=== PATIENT | female | born 1950 | race Caucasian/White ===

== ENCOUNTER → 2019-07-20 12:42 | Outpatient (CLI) | payer OTHER, SELFPAY ==
--- NOTE | ~2019-07-20 | XR_ITS ---
EXAMINATION:XR_CERV2-3V_CR DATE: 07/20/2019 13:02 INDICATION: Neck pain TECHNIQUE: AP, lateral, lateral swimmers and odontoid views of the cervical spine are provided. COMPARISON: 08/07/2018 FINDINGS: Alignment is normal. The odontoid is intact. No fracture is identified. There are changes o f anterior fusion at C4-5. The vertebral body heights are normal. There is mild loss of intervertebra l disc space height throughout the cervical spine which is unchanged. Mild multilevel facet osteoarth ritis is seen and moderate to severe uncovertebral joint osteoarthritis. There is moderate atlantoaxi al osteoarthritis as well. Prevertebral soft tissues are normal. IMPRESSION: 1. Mild to moderate cervical spondylosis without acute findings or significant interval change. Reviewed, dictated and finalized at location A. [employer]IST
== END ==
PROVIDERS: PCP Emergency Medicine; Visit Provider Emergency Medicine
DX: M47.892 Other spondylosis, cervical region (principal)
CPT/HCPCS: 72040

== ENCOUNTER 2019-07-27 12:27 | Outpatient (CLI) | payer OTHER, SELFPAY ==
--- NOTE | 2019-07-27 12:45 | ECHO_ITS ---
Patient Info Name: Chantal Clayton Age: 69 years : 1950 Gender: Female Ht: 66 in Wt: 160 lbs BSA: 1.85 m2 HR: 67 bpm BP: 166 / 94 mmHg Heart Rhythm: Sinus Rhythm Technical Quality: Excellent Exam Date: 07/27/2019 1:04 PM Exam Location: [facility] Patient Status: Outpatient Admit Date: 07/27/2019 Staff Ordering Physician: Nadir Gautam MD [employer] Psychologist: Juan José Olmstead RDCS Attending Provider: Nadir Gautam MD Referring Physician: Lotus SARABIA; Exam Type: CA echo doppler color flow Study Info Indications R01.1 - Cardiac murmur, unspecified Complete two-dimensional, color flow and Doppler transthoracic echocardiogram is performed. Strain analysis performed. History/Risk Factors Cardiac murmur. Summary 1. Left ventricular chamber dimension is normal. 2. Left ventricular systolic function is normal, estimated at 60-65%. 3. The left ventricular diastolic function is grade I diastolic dysfunction. 4. E/e' 5 is not elevated. 5. Global longitudinal strain is normal at -20.2%. 6. There is moderate aortic valve sclerosis. 7. There is mild aortic valve stenosis with a peak velocity of 182 cm/s, mean gradient of 7 mmHg, and aortic valve area of 2.0 cm2. 8. There is mild aortic valve regurgitation. 9. There is mild tricuspid valve regurgitation. 10. No pulmonary hypertension, estimated pulmonary arterial systolic pressure is 25 mmHg. Left Ventricle E/e' 5 is not elevated. Global longitudinal strain is normal at -20.2%. Left ventricular chamber dimension is normal. Left ventricular systolic function is normal, estimated at 60-65%. The left ventricular diastolic function is grade I diastolic dysfunction. Right Ventricle Right ventricular chamber dimension is normal. Right ventricular systolic function is normal. Left Atria Left atrial chamber dimension is normal. Right Atria Right atrial chamber dimension is normal. Aortic Valve The aortic valve is trileaflet. There is moderate aortic valve sclerosis. There is mild aortic valve stenosis with a peak velocity of 182 cm/s, mean gradient of 7 mmHg, and aortic valve area of 2.0 cm2. There is mild aortic valve regurgitation. Pulmonic Valve There is no pulmonic regurgitation. Mitral Valve There is no mitral valve stenosis. There is no mitral valve regurgitation. Tricuspid Valve There is mild tricuspid valve regurgitation. No pulmonary hypertension, estimated pulmonary arterial systolic pressure is 25 mmHg. Pericardium/Pleural There is no pericardial effusion. Inferior Vena Cava Normal inferior vena cava with >50% collapse upon inspiration consistent with normal right atrial pressure, 5 mmHg. Aorta The aortic root size at the sinus of Valsalva is normal. Left Ventricular Outflow Tract Name Value Normal LVOT 2D LVOT Diameter 2.1 cm LVOT Doppler LVOT Peak Gradient 4 mmHg LVOT Mean Gradient 3 mmHg LVOT VTI 26 cm LVOT VTI/AV VTI Ratio 0.6 LVOT Stroke Volume
== END 2019-07-27 12:28 | disposition home or self-care (01) ==
PROVIDERS: PCP Emergency Medicine; Visit Provider Emergency Medicine
DX: I08.3 Combined rheumatic disorders of mitral, aortic and tricuspid valves (principal)
CPT/HCPCS: 93306

== ENCOUNTER → 2019-08-26 16:48 | Outpatient (CLI) | payer OTHER, SELFPAY ==
--- NOTE | ~2019-08-26 | MR_ITS ---
EXAMINATION: MR cervical spine wo [facility] EXAM DATE: 08/26/2019 18:37 INDICATION: Neck pain radiating to shoulder and down right arm. TECHNIQUE: Multi-sequential, multiplanar MR images of the cervical spine were obtained without contra st. Axial T2, axial T2 MERGE sequence. Sagittal T1, T2, T2 fat saturation images also obtained. Th ere is no prior study for comparison. FINDINGS: There is anterior and interbody fusion C4-5. There is 2 mm retrolisthesis C3 on C4 and C5 on C6. There is mild to moderate cervical disc disease. The spinal cord signal intensity and intrinsi c morphology is normal. Cervicomedullary junction is normal in appearance. There are no suspicious ma rrow signal abnormalities. Mild cervical dextroscoliosis. Paraspinal soft tissue is unremarkable. Level by level evaluation: C2-C3: There is a mild diffuse disc bulge. Uncovertebral joint arthropathy: Mild left. Facet joint arthropathy: Moderate left, mild right. Neural foraminal stenosis: Mild to moderate left. Central canal stenosis: No stenosis. C3-C4: There is a mild diffuse disc bulge. Uncovertebral joint arthropathy: Mild bilateral. Facet joint arthropathy: Mild to moderate bilateral. Neural foraminal stenosis: Mild bilateral. Central canal stenosis: No stenosis. C4-C5: This level is fused. Uncovertebral joint arthropathy: Mild to moderate. Facet joint arthropathy: Mild bilateral. Neural foraminal stenosis: No stenosis. Central canal stenosis: No stenosis. C5-C6: There is a mild diffuse disc bulge. Uncovertebral joint arthropathy: Mild to moderate right, mild left. Facet joint arthropathy: Mild to moderate. Neural foraminal stenosis: Mild to moderate right, mild left. Central canal stenosis: No stenosis. C6-C7: Disc does not extend beyond the endplate margin. Uncovertebral joint arthropathy: Mild left. Facet joint arthropathy: Mild to moderate bilateral. Neural foraminal stenosis: Mild left. Central canal stenosis: No stenosis. C7-T1: Disc does not extend beyond the endplate margin. Uncovertebral joint arthropathy: Mild to moderate left, mild right. Facet joint arthropathy: Mild to moderate left, mild right. Neural foraminal stenosis: No stenosis. Central canal stenosis: No stenosis. IMPRESSION: 1. Overall mild to moderate cervical spondylosis. 2. Fusion C4-5. Reviewed, dictated and finalized at location A.
== END ==
PROVIDERS: Visit Provider Nurse Practitioner Adult Health
DX: M43.02 Spondylolysis, cervical region (principal); M47.892 Other spondylosis, cervical region; Z98.1 Arthrodesis status
CPT/HCPCS: 72141

== ENCOUNTER → 2019-12-17 09:15 | Outpatient (CLI) | payer OTHER, SELFPAY ==
--- NOTE | ~2019-12-17 | XR_ITS ---
XR foot RT 2V DATE: 12/17/2019 09:44 INDICATION: Multiple joint pain TECHNIQUE: AP and lateral views COMPARISON: None FINDINGS: Prominent plantar calcaneal enthesopathy. Mild osteoarthritis at the first metatarsophalangeal joint. No fracture, dislocation, periosteal reaction or bone destruction. IMPRESSION: Prominent plantar calcaneal enthesopathy Mild osteoarthritis at the first metatarsophalangeal joint Reviewed, dictated and finalized at location B.
--- NOTE | ~2019-12-17 | XR_ITS ---
XR foot LT 2V DATE: 12/17/2019 09:44 INDICATION: Multiple joint pain TECHNIQUE: AP and lateral views COMPARISON: 09/02/2014 left foot FINDINGS: There is prominent plantar calcaneal enthesopathy. No fracture or dislocation, periosteal reaction or bone destruction. Moderate osteopenia. IMPRESSION: Prominent plantar calcaneal enthesopathy Reviewed, dictated and finalized at location B.
--- NOTE | ~2019-12-17 | XR_ITS ---
EXAMINATION: XR shoulder RT min 2V, XR shoulder LT min 2V DATE: 12/17/2019 09:44 INDICATION: Multiple joint pain. TECHNIQUE: 1. AP internally and externally rotated and axillary views of the affected shoulder were obtained. 2. AP internally and externally rotated and axillary views of the affected shoulder were obtained. COMPARISON: Right shoulder radiographs dated 05/11/2018 and MRI dated 04/01/2018. FINDINGS: Normal alignment at both shoulders. No fracture. Mild osteoarthritis at the right glenohumeral and b ilateral acromioclavicular joints. Suggestion of mild erosive change along the bilateral greater tube rosities which can be seen with chronic rotator cuff disease. Soft tissues are unremarkable. C4-C5 an terior spinal fusion with plate and screw fixation. Visualized portions of the bilateral mid and uppe r lung zones lungs are clear. IMPRESSION: 1. Mild right glenohumeral and bilateral acromioclavicular osteoarthritis. 2. Erosive changes along the bilateral greater tuberosities which can be seen with rotator cuff disea se. Reviewed, dictated and finalized at location A. IMPRESSION: 1. Mild right glenohumeral and bilateral acromioclavicular osteoarthritis. 2. Erosive changes along the bilateral greater tuberosities which can be seen w ith rotator cuff disease.
--- NOTE | ~2019-12-17 | XR_ITS ---
EXAMINATION: XR hand LT 2V, XR hand RT 2V, XR wrist LT 2V, XR wrist RT 2V DATE: 12/17/2019 09:44 INDICATION: Multiple joint pain TECHNIQUE: 1. Posteroanterior and lateral views of the left wrist were obtained. 2. Dorsal palmar and lateral views of the left hand were obtained. 3. Posteroanterior and lateral views of the right wrist were obtained. 4. Dorsal palmar and lateral views of the right hand were obtained. COMPARISON: None. FINDINGS: There is mild radial angulation at the bilateral second distal interphalangeal joints likely related to severe erosive osteoarthritis with central erosions gullwing configuration at the base of the bila teral second distal phalanges. Additional similar appearing erosion at the base of the left fifth dis philip phalanx. Otherwise normal alignment at the bilateral hands and wrists. No fractures. Additional p olyarticular osteoarthritis, moderate severity at the lateral triscaphe, right first carpometacarpal left first interphalangeal and fourth and fifth distal interphalangeal and right third and fourth dis philip interphalangeal joints and mild at the left first carpal metacarpal, bilateral radiocarpal and ma jority the remaining metacarpophalangeal and interphalangeal joints. Likely degenerative subchondral cyst within sclerotic margins at the ulnar side of the proximal pole of the scaphoid. No periarticula r erosions to suggest an inflammatory arthritis such as rheumatoid. IMPRESSION: 1. 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 Reviewed, dictated and finalized at location A. IMPRESSION: 1. Moderate to severe polyarticular osteoarthritis at the bilateral hands and w rists includes erosive osteoarthritis at a few of the distal interphalangeal alecia ints. IMPRESSION: 1. Moderate to severe polyarticular osteoarthritis at the bilateral hands and w rists includes erosive osteoarthritis at a few of the distal interphalangeal alecia ints. IMPRESSION: 1. Moderate to severe polyarticular osteoarthritis at the bilateral hands and w rists includes erosive osteoarthritis at a few of the distal interphalangeal alecia ints.
== END ==
PROVIDERS: PCP Emergency Medicine; Visit Provider Internal Medicine Rheumatology
DX: M25.50 Pain in unspecified joint (principal); M77.32 Calcaneal spur, left foot; M77.31 Calcaneal spur, right foot; M19.071 Primary osteoarthritis, right ankle and foot; M19.012 Primary osteoarthritis, left shoulder; M19.011 Primary osteoarthritis, right shoulder; M19.041 Primary osteoarthritis, right hand; M19.042 Primary osteoarthritis, left hand; M19.031 Primary osteoarthritis, right wrist; M19.032 Primary osteoarthritis, left wrist
CPT/HCPCS: 73030; 73100; 73120; 73620

== ENCOUNTER 2020-08-16 15:56 | Outpatient (CLI) | payer OTHER, MEDICARE, SELFPAY | END 2020-08-16 15:57 | disposition home or self-care (01) | LOC: ANHCOVIDVC 15:56 | PROVIDERS: PCP Emergency Medicine | DX: Z23 Encounter for immunization (principal) | CPT/HCPCS: 0001A; 91300 ==

== ENCOUNTER 2020-09-06 15:52 | Outpatient (CLI) | payer OTHER, MEDICARE, SELFPAY | END 2020-09-06 15:53 | disposition home or self-care (01) | LOC: ANHCOVIDVC 15:52 | PROVIDERS: PCP Emergency Medicine | DX: Z23 Encounter for immunization (principal) | CPT/HCPCS: 0002A; 91300 ==

== ENCOUNTER → 2020-09-15 00:49 | Outpatient (CLI) | payer OTHER, SELFPAY ==
[2020-09-15 19:49] LABS: SARS-CoV-2 RNA PCR Negative
== END ==
PROVIDERS: PCP Emergency Medicine; Visit Provider Internal Medicine Gastroenterology
DX: Z01.812 Encounter for preprocedural laboratory examination (principal); Z20.822 Contact with and (suspected) exposure to COVID-19
CPT/HCPCS: C9803; U0003; U0005

== ENCOUNTER 2020-09-18 01:21 | Day surgery (SDC) | payer OTHER, SELFPAY ==
[2020-09-04 13:21] VITALS: BMI 24.9
[2020-09-18 13:01] VITALS: BP 113/74; PULSE 83; RESP 16; TEMP 37.2; O2SAT 98; BMI 23.3
--- NOTE | 2020-09-18 13:06 | WPDANESEPPF ---
Anes - Initial Pre Proc Eval Procedure: Operation Date: 09/18/20 14:15 Proposed Procedures p Esophagogastroduodenoscopy & Colonoscopy - He Dumont MD Date/Time: 09/18/20 13:06 Surgeon: He Dumont MD Pre Op Diagnosis: GERD, diarrhea Patient Data Age: 70 Gender: F Height: 5 ft 6 in Weight: 65.6 kg Last Vital Signs Temp 99 F 09/18/20 13:01 Pulse 83 09/18/20 13:01 Resp 16 09/18/20 13:01 BP 113/74 09/18/20 13:01 Pulse Ox 98 09/18/20 13:01 Allergies Allergy/AdvReac Type Severity Reaction Status Date / Time acetaminophen Allergy Intermediate Other Verified 09/18/20 13:00 oxycodone Allergy Intermediate Other Verified 09/18/20 13:00 Home Medications Medication Instructions Recorded Confirmed Type cholecalciferol (vitamin D3) 50 50 mcg PO DAILY cap 02/08/20 09/04/20 History mcg (2,000 unit) capsule cyanocobalamin (vitamin B-12) 1,000 mcg PO DAILY 02/08/20 09/04/20 History 1,000 mcg tablet alendronate 70 mg tablet See Rx Instructions .ROUTE 08/28/20 09/04/20 Rx .COMPLEX #12 tablet Patient hx anesthesia problems: none Family hx anesthesia problems: none PMFSH Past Medical History Medical History GERD (gastroesophageal reflux disease) Vitamin D deficiency disease Family History Family History Sibling Family history of cardiovascular disease Other Diabetes mellitus Family history of arthritis Social History Social History Smoking status: Never smoker Alcohol intake: current Alcohol use details: 1drink every 2 months Living arrangements: with family Gender identity (if verbalized by the patient): Male Spiritual care concerns: No Anes - Eval Final PreProcedure Day of Procedure 09/18/20 13:06 Patient weight: normal Heart: regular rate and rhythm Lungs: clear to auscultation Airway: Mallampati scale class II Neurological: alert and oriented Last oral intake: >/= 8 hours ASA classification: II Emergent: no Anesthetic plan: proceed Anesthesia type and monitoring: general GIVS and standard monitoring Informed Consent: The patient's anesthetic plan and its attendant risks and benefits were discussed with the patient/family/POA. Questions were solicited and answers provided to the satisfaction of the patient/family/POA.
[2020-09-18] MEDS: LACTATED RINGERS 1,000 ML 150 ML IV CONT (13:14)
--- NOTE | 2020-09-18 14:18 | PM.HPGS ---
History of Present Illness History of Present Illness Consent: Risks, benefits, and alternatives have been discussed and questions answered. Patient agrees to proceed with procedure. Chief complaint: GERD, diarrhea Narrative: Chantal Clayton is a 70 year old female with symptomatic gerd, currently not using ppi, also intermittent diarrhea (last colonoscopy 2012) Review of Systems Constitutional: Constitutional: Denies headache(s) and Denies weakness Eyes: Eyes: Denies blurry vision ENT: Reports Normal hearing present, Denies headache(s) and Denies neck pain Cardiovascular: Cardiovascular: Denies chest pain and Denies dyspnea Respiratory: Respiratory: Denies dyspnea Gastrointestinal: Gastrointestinal: Reports no additional gastrointestinal complaints Genitourinary: Genitourinary: Denies dysuria Musculoskeletal: Musculoskeletal: Denies neck pain Integumentary/Breasts: Skin/Breast: Denies dry skin Neurologic: Reports Normal hearing present, Denies headache(s) and Denies weakness Psychiatric: Psychiatric: Denies anxiety Endocrine: Endocrine: Denies change in body appearance Hematologic/Lymphatic: Hematologic/Lymphatic: Denies easy bleeding Allergic/Immunologic: Allergic/Immunologic: Denies urticaria PMFSH Past Medical History Medical History GERD (gastroesophageal reflux disease) Vitamin D deficiency disease Family History Family History Sibling Family history of cardiovascular disease Other Diabetes mellitus Family history of arthritis Social History Social History Smoking status: Never smoker Alcohol intake: current Alcohol use details: 1drink every 2 months Living arrangements: with family Gender identity (if verbalized by the patient): Male Spiritual care concerns: No Meds Home Medications and Allergies Home Medications Medication Instructions Recorded Confirmed Type cholecalciferol (vitamin D3) 50 50 mcg PO DAILY cap 02/08/20 09/04/20 History mcg (2,000 unit) capsule cyanocobalamin (vitamin B-12) 1,000 mcg PO DAILY 02/08/20 09/04/20 History 1,000 mcg tablet alendronate 70 mg tablet See Rx Instructions .ROUTE 08/28/20 09/04/20 Rx .COMPLEX #12 tablet Allergies Allergy/AdvReac Type Severity Reaction Status Date / Time acetaminophen Allergy Intermediate Other Verified 09/18/20 13:00 oxycodone Allergy Intermediate Other Verified 09/18/20 13:00 Vital Signs Vital Signs - 24 hr 09/18/20 13:01 Temperature 99 F Pulse Rate 83 Respiratory Rate 16 Blood Pressure 113/74 Pulse Oximetry 98 Exam Const: General: comfortable and no acute distress HENMT: General nose exam: Normal nares present Eyes: General: appearance normal, both eyes and all related structures Neck: Neck: no JVD Resp: Auscultation: clear to auscultation bilaterally Cardio: Rate: regular rate Rhythm: regular rhythm GI: Inspection: non-distended GI Palp: Yes Soft to palpation Skin: General skin exam: normal color Neuro: General: gait normal Speech: normal speech Extrem: General: normal to inspection Psych: Mental Status: mental status grossly normal Assessment and Plan Assessment and plan (1) GERD (gastroesophageal reflux disease): Qualifiers: Esophagitis presence: without esophagitis Qualified Code(s): K21.9 - Gastro-esophageal reflux disease without esophagitis Code(s): K21.9 - Gastro-esophageal reflux disease without esophagitis Status: Acute Assessment and Plan: egd with bx, consider ppi (2) Diarrhea: Qualifiers: Diarrhea type: unspecified type Qualified Code(s): R19.7 - Diarrhea, unspecified Code(s): R19.7 - Diarrhea, unspecified Status: Acute Assessment and Plan: colonoscopy with random bx
[2020-09-18] MEDS: BENZOCAINE (*SP) 60 ML SPRAY CAN (HURRICAINE) 1 SPRAY MUCOUS MEM (14:20)
[2020-09-18 14:56] VITALS: BP 89/55; PULSE 69; RESP 13; O2SAT 96
[2020-09-18 15:06] VITALS: BP 94/58; PULSE 80; RESP 20; O2SAT 97
[2020-09-18 15:16] VITALS: BP 101/57; PULSE 70; RESP 22; O2SAT 99
--- NOTE | 2020-09-18 15:31 | SUR.PHASEII ---
1516 pt up to bathroom
== END 2020-09-18 15:39 | disposition home or self-care (01) ==
PROVIDERS: PCP Emergency Medicine; Visit Provider Internal Medicine Gastroenterology
PROC: 0DJ08ZZ Inspection of Upper Intestinal Tract, Via Natural or Artificial Opening Endoscopic (ICD-10-PCS; CPT 43235; principal; 2020-09-18 14:15)
DX: R19.7 Diarrhea, unspecified (principal); D12.2 Benign neoplasm of ascending colon; K63.5 Polyp of colon; K21.00 Gastro-esophageal reflux disease with esophagitis, without bleeding; E55.9 Vitamin D deficiency, unspecified
CPT/HCPCS: 45385; 45380; 43239; 88305; C9803; J2704; J7120; U0003; U0005

== ENCOUNTER → 2020-10-26 14:37 | Outpatient (CLI) | payer OTHER, SELFPAY ==
--- NOTE | ~2020-10-26 | MM_ITS ---
EXAMINATION: MM screening [facility] BI w anh HISTORY: Screening TECHNIQUE: Craniocaudal and mediolateral oblique 3-D tomosynthesis images were obtained and synthetic 2-D images were generated. CAD analysis was submitted and interpreted. COMPARISON: Comparison to multiple prior studies sequentially, with oldest reviewed study dated 03/10. BREAST PARENCHYMAL COMPOSITION: There are scattered areas of fibroglandular density. FINDINGS: There is no evidence of suspicious mass, calcification, or architectural distortion to sugg est malignancy in either breast. There has been no suspicious interval change. IMPRESSION: 1. No mammographic evidence of malignancy. 2. Recommend routine screening mammography in one year. BI-RADS Category 1: Negative Reviewed, dictated and finalized at location A.
== END ==
PROVIDERS: PCP Emergency Medicine; Visit Provider Emergency Medicine
DX: Z12.31 Encounter for screening mammogram for malignant neoplasm of breast (principal)
CPT/HCPCS: 77063; 77067

== ENCOUNTER → 2022-04-02 14:20 | Outpatient (CLI) | payer OTHER, SELFPAY ==
--- NOTE | ~2022-04-02 | MM_ITS ---
EXAMINATION: MM screening [facility] BI w anh HISTORY: Screening mammogram TECHNIQUE: Craniocaudal and mediolateral oblique 3-D tomosynthesis images were obtained and synthetic 2-D images were generated. CAD analysis was submitted and interpreted. COMPARISON: 10/26/2020, 08/05/2018, 04/04/2017 BREAST PARENCHYMAL COMPOSITION: There are scattered areas of fibroglandular density. FINDINGS: Scattered benign-appearing calcifications are present. No suspicious mass, calcification, o r architectural distortion are identified in either breast to suggest malignancy. There has been no s uspicious interval change. IMPRESSION: 1. No mammographic evidence of malignancy. 2. Recommend routine screening mammography in one year. BI-RADS Category 2: Benign finding(s). Reviewed, dictated and finalized at location A.
== END ==
PROVIDERS: PCP Emergency Medicine; Visit Provider Emergency Medicine
DX: Z12.31 Encounter for screening mammogram for malignant neoplasm of breast (principal)
CPT/HCPCS: 77063; 77067

== ENCOUNTER 2023-12-09 09:27 | Outpatient (CLI) | payer OTHER, SELFPAY ==
--- NOTE | ~2023-12-09 | MM_ITS ---
EXAMINATION: MM screening [facility] BI w anh HISTORY: Screening mammogram TECHNIQUE: Craniocaudal and mediolateral oblique 3-D tomosynthesis images were obtained and synthetic 2-D images were generated. CAD analysis was submitted and interpreted. COMPARISON: 04/02/2022, 10/26/2020, 08/05/2018 BREAST PARENCHYMAL COMPOSITION:Not Dense. There are scattered areas of fibroglandular density. FINDINGS: No suspicious mass, calcification, or architectural distortion are identified in either edvin ast to suggest malignancy. There has been no suspicious interval change. IMPRESSION: No mammographic evidence of malignancy. Recommend routine screening mammography in one year. BI-RADS Category 1: Negative Reviewed, dictated and finalized at location .
== END 2023-12-09 09:28 ==
PROVIDERS: Visit Provider Emergency Medicine
DX: Z12.31 Encounter for screening mammogram for malignant neoplasm of breast (principal)
CPT/HCPCS: 77063; 77067

== ENCOUNTER 2024-02-04 11:39 | Outpatient (CLI) | payer OTHER, SELFPAY ==
--- NOTE | ~2024-02-04 | DEXA_ITS ---
Bone Density Report Name: HENRY MULLIGAN Age: 74 Sex: Female Ethnicity: White Date of : 1950 Indication: postmenopausal; screening for osteoporosis; prior fracture; asthma or emphysema; rheumatoid arthritis; Referring Provider: ANGELA SUN Study: Bone densitometry was performed. Exam Date: February 04, 2024 Accession number: [id number] Bone Density: Region BMD T-score Z-score Classification Femoral Neck (Left) 0.566 -2.6 -0.5 Osteoporosis Total Hip (Left) 0.677 -2.2 -0.4 Osteopenia Femoral Neck (Right) 0.591 -2.3 -0.3 Osteopenia Total Hip (Right) 0.674 -2.2 -0.5 Osteopenia Total Hip Mean 0.676 -2.2 -0.5 Osteopenia World Health Organization criteria for BMD impression classify patients as: Normal (T-score at or above -1.0), Osteopenia (T-score between -1.0 and -2.5), or Osteoporosis (T-score at or below -2.5). 10-year Fracture Risk: FRAX not reported because: Some T-score for Spine Total or Hip Total or Femoral Neck at or below -2.5 Prior hip or vertebral fracture Treated for osteoporosis Clinical Information Provided by Patient: Have had a previous hip or vertebral fracture Has had a low trauma fracture Has rheumatoid arthritis Is being treated for osteoporosis Has used the following medications: Fosamax (i.e. alendronate), Vitamin D Has the following medical conditions: Asthma or Emphysema Patient maximum height was 69.0 Does not regularly consume dairy products Drinks caffeinated beverages Onset of menses at age 11 Number of children 2 Impression: The patient has established osteoporosis, based on the Left Femoral Neck T-score and the existence of a prior fracture. The patient has risk factors, including: previous fracture. Discussion: It is important to ask patients whether they are taking their medications and to encourage continued and appropriate compliance with their osteoporosis therapies to reduce fracture risk. It is also important to review their risk factors and encourage appropriate calcium and vitamin D intakes, exercise, fall prevention and other lifestyle measures. Follow-Up: Consider a repeat BMD and Vertebral Fracture Assessment (VFA) exam in 2 years or sooner if medically necessary, to reassess this patient's status. Reported by: DIANE on 02/04/2024 12:35:00 PM. Reviewed, dictated and finalized at location Manny RIVERA
== END 2024-02-04 11:40 | disposition home or self-care (01) ==
PROVIDERS: PCP Emergency Medicine; Visit Provider Emergency Medicine
DX: M81.0 Age-related osteoporosis without current pathological fracture (principal); E55.9 Vitamin D deficiency, unspecified; M85.89 Other specified disorders of bone density and structure, multiple sites
CPT/HCPCS: 77080

== ENCOUNTER 2024-02-25 14:40 | Emergency (ER) | payer OTHER, SELFPAY ==
--- NOTE | ~2024-02-25 | CT_ITS ---
CT diagnostic chest wo con Ordering provider: Robbie Restrepo MD History: 74 years Female with . LEFT RIB PAIN/FALL . Comparison: None. Technique: CT chest without IV contrast. Radiation reduction technique utilized.The dose-length product was 167 mGy-cm FINDINGS: VISUALIZED THORACIC INLET: Normal. MEDIASTINUM: Aorta/coronary arteries: Mild atheromatous disease. Heart/other: The heart is not enlarged. Lymph nodes: No mediastinal or hilar adenopathy. LUNGS: Emphysematous changes of the lungs. Dependent atelectatic changes. No pulmonary nodules or mas ses. No infiltrates or effusions. No pneumothorax. VISUALIZED UPPER ABDOMEN: Otherwise, the visualized upper abdomen is normal. MUSCULOSKELETAL: Soft tissues: The superficial soft tissues are normal. Bones: Age appropriate degenerative changes of the spine. Possible Fracture is seen posteriorly in th e left 11, 9, and 8 ribs. Possible fracture in the right sixth and seventh rib. IMPRESSION: 1. Possible multiple rib fractures bilaterally. Follow-up advised. 2. Compression fracture of T12 and T11. 3. No acute lung lesion seen. Reviewed, dictated and finalized at location A.
--- NOTE | 2024-02-25 14:49 | ECG_ITS ---
Test Date: 2024-02-25 14:49:43 Measurements Intervals [place] Rate: 78 P: 62 CA: 153 QRS: -22 QRSD: 107 T: 34 QT: 392 QTc: 447 Interpretive Statements SINUS RHYTHM BASELINE ARTIFACT- I, II, AVR, AVL, AVF, V1 NORMAL ECG No previous ECG available for comparison Electronically Signed On 02-26-2024 08:17:19 CDT by Carlitos Herring D.O.
--- NOTE | 2024-02-25 15:02 | ED.GENADULT ---
HPI - General Adult General Chief complaint: Fall Stated complaint: FALL DOWN HILL 2 WEEKS AGO PAIN TO LEFT SIDE OF CH Time Seen by Provider: 02/25/24 14:55 Source: patient and family Mode of arrival: ambulatory Limitations: no limitations History of Present Illness HPI narrative: 74 years old white female came to the ED with pain at the left lower ribs, left shoulder after falling while walking her dog , rolled down a hill. Two weeks ago, She denies loss of consciousness, head injury, neck pain or back pain. Patient reports the pain at the left lower ribs is getting worse been taking Tylenol without remarkable improvement. History of advanced osteoporosis with kyphosis and back surgery. Related Data Home Medications Medication Instructions Recorded Confirmed cholecalciferol (vitamin D3) 50 50 mcg PO DAILY 02/08/20 11/18/23 mcg (2,000 unit) capsule aspirin 81 mg tablet,delayed 81 mg PO DAILY 07/14/23 11/18/23 release Allergies Allergy/AdvReac Type Severity Reaction Status Date / Time oxycodone Allergy Intermediate Gastrointestinal Verified 02/25/24 15:09 Upset Review of Systems Review of Systems: All systems reviewed & are unremarkable except as noted in HPI and below PMFSH Past Medical History Medical History Acute pain of right shoulder Age related osteoporosis Chest pain Chronic bilateral low back pain without sciatica Dental abscess Epigastric pain GERD (gastroesophageal reflux disease) GERD with esophagitis GERD without esophagitis Hx of adenomatous colonic polyps Hyperkalemia Incomplete tear of right rotator cuff Irritable bowel syndrome with diarrhea Mixed hyperlipidemia Osteoporosis Overweight (BMI 25.0-29.9) Post-menopause Primary osteoarthritis, unspecified site Skin lesion of face Vitamin D deficiency disease Family History Family History Sibling Family history of cardiovascular disease Other Diabetes mellitus Family history of arthritis Social History Social History Smoking status: Never smoker Alcohol intake: current Alcohol use details: 1drink every 2 months Current Housing: Decline to Answer Concerned About Future Housing: Decline to Answer Difficulty Paying Gas/Electric Bills: Decline to Answer Difficulty Paying for Meds: Decline to Answer Currently Unemployed: Decline to Answer Education: Decline to Answer Difficulty w/ Childcare or Family Care: Decline to Answer Living arrangements: with family Gender identity (if verbalized by the patient): Male Spiritual care concerns: No Exam Narrative: General appearance: Well-developed, well-nourished, in pain Skin: Normal color Head: Normocephalic, nontraumatic Eyes: Clear conjunctiva ENT: Oropharynx normal, ears normal, nose normal Neck: Supple, nontender Chest and respiratory: Airway patent, no respiratory distress, no accessory muscle use severe tenderness left lower ribs Heart: Regular rate/rhythm Abdomen: Soft, nontender, no organomegaly, quiet bowel sounds Vascular: Normal peripheral pulses, normal capillary refill. Musculoskeletal: Normal range of motion, nontender back, kyphosis, no bruises, no swelling or rash Neurologic: Alert and oriented ?3, FERRY OPERATOR is normal as tested, no gross motor deficit Course Vital Signs Vital signs: Vital Signs Temperature 36.6 C 02/25/24 15:03 Pulse Rate 73 02/25/24 15:03 Respiratory Rate 18 02/25/24 15:03 Blood Pressure 138/87 02/25/24 15:03 Pulse Oximetry 98 02/25/24 15:03 Oxygen Delivery Room Air
[2024-02-25 15:03] VITALS: BP 138/87; PULSE 73; RESP 18; TEMP 36.6; O2SAT 98
[2024-02-25] MEDS: ACETAMINOPHEN 325 MG TABLET 650 MG PO (16:03)
[2024-02-25] MEDS: IBUPROFEN 600 MG TABLET PO (16:04)
[2024-02-25 16:59] VITALS: BP 138/87; PULSE 77; RESP 20; O2SAT 99
== END 2024-02-25 17:05 | disposition home or self-care (01) ==
PROVIDERS: Emergency Provider Emergency Medicine; PCP Emergency Medicine
DX: S22.43XA Multiple fractures of ribs, bilateral, initial encounter for closed fracture (principal); S22.080A Wedge compression fracture of T11-T12 vertebra, initial encounter for closed fracture; E78.2 Mixed hyperlipidemia; E66.3 Overweight; Z68.28 Body mass index [BMI] 28.0-28.9, adult; E55.9 Vitamin D deficiency, unspecified; K21.00 Gastro-esophageal reflux disease with esophagitis, without bleeding; K58.0 Irritable bowel syndrome with diarrhea; M81.0 Age-related osteoporosis without current pathological fracture; M19.90 Unspecified osteoarthritis, unspecified site; Z86.010 Personal history of colon polyps; W10.2XXA Fall (on)(from) incline, initial encounter; Y93.K1 Activity, walking an animal
CPT/HCPCS: 71250; 93005; 99284; A9270

== ENCOUNTER 2024-03-03 11:56 | Outpatient (CLI) | payer OTHER, SELFPAY ==
--- NOTE | ~2024-03-03 | XR_ITS ---
Left Shoulder Technique: AP and scapular Y views were obtained. Clinical History: Pain Findings: No fracture or dislocation is seen. Osseous alignment is anatomic. The glenohumeral and acr omioclavicular joint spaces are preserved. Soft tissues are unremarkable. Impression: Unremarkable left shoulder radiographs. Reviewed, dictated and finalized at [facility]. Impression: Unremarkable left shoulder radiographs.
== END 2024-03-03 11:57 | disposition home or self-care (01) ==
PROVIDERS: PCP Emergency Medicine; Visit Provider Emergency Medicine
DX: M25.512 Pain in left shoulder (principal)
CPT/HCPCS: 73030

== ENCOUNTER 2024-04-20 12:25 | Outpatient (CLI) | payer OTHER, SELFPAY ==
--- NOTE | ~2024-04-20 | MR_ITS ---
EXAMINATION: MR cervical spine wo con DATE: 04/20/2024 13:50 INDICATION: Neck pain. TECHNIQUE: Magnetic resonance imaging (MRI) of the cervical spine was performed without intravenous c ontrast. COMPARISON: Cervical spine MRI 08/26/2019 FINDINGS: There is 11 degrees dextroscoliosis of cervical spine. Vertebral body heights are normal. T here are changes of anterior fusion procedure at C4-C5 with healed interbody bone graft and anterior plate and screws. There is 2 mm retrolisthesis of C5 on C6. There is a chronic compression fracture o f T3. There is mildly decreased disc height at C5-C6. The spinal cord signal intensity is normal. The following disc levels are specifically discussed: C2-C3: There is a central extrusion. There is mild right and moderate left uncovertebral joint osteoa rthritis. There is severe bilateral facet joint osteoarthritis. There is mild left neural foraminal s tenosis. There is mild central canal stenosis. C3-C4: There is a central protrusion. There is mild bilateral uncovertebral joint osteoarthritis. The re is mild right and moderate left facet joint osteoarthritis. There is mild left neural foraminal st enosis. There is no central canal stenosis. C4-C5: There is no uncovertebral joint hypertrophy. There is no facet joint hypertrophy. There is no neural foraminal stenosis. There is no central canal stenosis. C5-C6: The disc is bulging. There is moderate bilateral uncovertebral joint osteoarthritis. There is mild right and moderate left facet joint osteoarthritis. There is mild bilateral neural foraminal ulises nosis. There is mild central canal stenosis. C6-C7: The disc is bulging. There is mild left uncovertebral joint osteoarthritis. There is severe bi lateral facet joint osteoarthritis. There is mild bilateral neural foraminal stenosis. There is no ce ntral canal stenosis. C7-T1: The disc does not extend beyond the endplate margin. There is no uncovertebral joint osteoarth ritis. There is mild right and moderate left facet joint osteoarthritis. There is mild left neural fo raminal stenosis. There is no central canal stenosis. IMPRESSION: 1. Mild cervical spondylosis. 2. Anterior fusion procedure at C4-C5. 3. Cervical dextroscoliosis. Reviewed, dictated and finalized at location A. PLE CHASER
== END 2024-04-20 12:26 | disposition home or self-care (01) ==
LOC: MICIMG 12:27
PROVIDERS: PCP Emergency Medicine; Visit Provider Emergency Medicine
DX: M47.892 Other spondylosis, cervical region (principal); Z98.1 Arthrodesis status
CPT/HCPCS: 72141

== ENCOUNTER 2024-05-24 12:29 | Outpatient (CLI) | payer OTHER, SELFPAY ==
--- NOTE | ~2024-05-24 | MR_ITS ---
EXAMINATION: MR shoulder LT wo con DATE: 05/24/2024 13:09 INDICATION: Left shoulder pain. TECHNIQUE: Magnetic resonance imaging (MRI) of the left shoulder was performed without intravenous co ntrast. Sequences included axial PD-weighted FS FSE, coronal oblique PD-weighted FS FSE and T2-weight ed FS FSE, and sagittal oblique T2-weighted FS FSE and T1-weighted FSE. COMPARISON: Left shoulder radiographs 03/03/2024 FINDINGS: Coracoacromial arch: The acromion undersurface is curved in morphology with anterior hook (type III). There is severe acro mioclavicular joint osteoarthritis. There is mild subacromial/subdeltoid bursitis. Rotator cuff: There is severe supraspinatus and anterior infraspinatus tendinopathy. There is an articular sided pa rtial-thickness tear of the conjoined portion of the tendon measuring 12 mm anterior to posterior by 6 mm proximal to distal by 50% tendon thickness. Teres minor tendon is normal. There is moderate subs capularis tendinopathy. There is no asymmetric fatty atrophy of the rotator cuff muscle bellies. Biceps tendon and glenoid labrum: Biceps tendon is in bicipital groove. There is mild intra-articular biceps tendinopathy. There is deg enerative tearing of the glenoid labrum. Fluid: There is a small glenohumeral joint effusion. Bones/cartilage: There is partial-thickness cartilage loss of glenoid, deep superiorly. There is deep partial-thicknes s cartilage loss of humeral head involving the superior and medial aspects of the articular surface. Osteophytes are noted. IMPRESSION: 1. Severe rotator cuff tendinopathy with articular-sided, partial-thickness tear. 2. Moderate glenohumeral joint chondrosis. 3. Severe acromioclavicular joint osteoarthritis. 4. Small glenohumeral joint effusion. 5. Mild intra-articular biceps tendinopathy. 6. Mild subacromial/subdeltoid bursitis. Reviewed, dictated and finalized at location A. HOUSE DRAG OPERATOR IMPRESSION: 1. Severe rotator cuff tendinopathy with articular-sided, partial-thickness tea r. 2. Moderate glenohumeral joint chondrosis. 3. Severe acromioclavicular joint osteoarthritis. 4. Small glenohumeral joint effusion. 5. Mild intra-articular biceps tendinopathy. 6. Mild subacromial/subdeltoid bursitis.
--- NOTE | ~2024-05-24 | MR_ITS ---
EXAMINATION: MR shoulder RT wo con DATE: 05/24/2024 13:27 INDICATION: Pain in right shoulder. TECHNIQUE: Magnetic resonance imaging (MRI) of the right shoulder was performed without intravenous c ontrast. Sequences included axial PD-weighted FS FSE, coronal oblique PD-weighted FS FSE and T2-weigh deepthi FS FSE, and sagittal oblique T2-weighted FS FSE and T1-weighted FSE. COMPARISON: None. FINDINGS: Coracoacromial arch: The acromion undersurface is curved in morphology (type II). There is severe acromioclavicular joint osteoarthritis. There is mild subacromial/subdeltoid bursitis. Rotator cuff: There is severe supraspinatus tendinopathy with distal interstitial tear measuring 3 mm anterior to p osterior by 4 mm proximal to distal by 30% tendon thickness. There is moderate infraspinatus tendinop athy. Teres minor tendon is normal. There is moderate subscapularis tendinopathy. No tear. There is n o asymmetric fatty atrophy of the rotator cuff muscle bellies. Biceps tendon and glenoid labrum: Biceps tendon is in bicipital groove. There is mild intra-articular biceps tendinopathy. There is deg eneration of the glenoid labrum without well-defined tear. Fluid: There is a small glenohumeral joint effusion. Bones/cartilage: There is deep partial-thickness cartilage loss of glenoid and humeral head. Osteophytes are noted. IMPRESSION: 1. Severe rotator cuff tendinopathy with interstitial tear of supraspinatus tendon. 2. Moderate glenohumeral joint chondrosis. 3. Severe acromioclavicular joint osteoarthritis. 4. Small glenohumeral joint effusion. 5. Mild intra-articular biceps tendinopathy. 6. Mild subacromial/subdeltoid bursitis. Reviewed, dictated and finalized at location A. MANAGER IMPRESSION: 1. Severe rotator cuff tendinopathy with interstitial tear of supraspinatus ten don. 2. Moderate glenohumeral joint chondrosis. 3. Severe acromioclavicular joint osteoarthritis. 4. Small glenohumeral joint effusion. 5. Mild intra-articular biceps tendinopathy. 6. Mild subacromial/subdeltoid bursitis.
== END 2024-05-24 12:30 | disposition home or self-care (01) ==
LOC: MICIMG 12:29
PROVIDERS: PCP Emergency Medicine; Visit Provider Emergency Medicine
DX: M19.012 Primary osteoarthritis, left shoulder (principal); M19.011 Primary osteoarthritis, right shoulder; M25.412 Effusion, left shoulder; M25.411 Effusion, right shoulder
CPT/HCPCS: 73221

== ENCOUNTER 2024-09-21 08:45 | Outpatient (CLI) | payer OTHER, SELFPAY ==
--- NOTE | ~2024-09-21 | XR_ITS ---
EXAMINATION: XR UGIAC w kub DATE: 09/21/2024 09:37 INDICATION: GERD TECHNIQUE: KUB of the abdomen and pelvis was obtained on 2 images. Subsequently the patient drank thi ck barium, gas-producing crystals, and thin barium. A total of 625 fluoroscopic images of the esophag us, stomach, and proximal small bowel were obtained. Fluoroscopy exposure time was 1.7 minutes. Total DAP was 25.032 mGycm^2 COMPARISON: None. FINDINGS: The esophagus is normal without mass or stricture. Esophageal motility is normal. There is no hiatal hernia. There were 2 episodes of spontaneous gastroesophageal reflux, one resulting in larg e amount of contrast extending to the proximal esophagus at the level of the thoracic inlet. Addition al reflux was unable to be elicited with provocative maneuvers. The stomach and proximal small bowel are normal. IMPRESSION: 1. 2 episodes of spontaneous gastroesophageal reflux with contrast extending to the proximal esophagu s to the level of the thoracic inlet. Otherwise normal upper GI study. Reviewed, dictated and finalized at location A. IMPRESSION: 1. 2 episodes of spontaneous gastroesophageal reflux with contrast extending to the proximal esophagus to the level of the thoracic inlet. Otherwise normal up per GI study.
--- OUTSIDE RECORDS SUMMARY | 2024-09-21 09:09 | XMS_ITS | Clinical Summary ---
Author Organization [facility] Address [address] [place] [id number] Care Team Providers Care Timber Girdler Name Role Phone Dangelo Ford MD Primary Care Provider Stephanie avilez Social History Tobacco Use Types Packs/Day Years Used Date Smoking Tobacco: Never Assessed Comments Unknown Sex and Gender Information Value Date Recorded Sex Assigned at Not on file Legal Sex Female 9:41 PM CDT Gender Identity Not on file Sexual Orientation Not on file Last Filed Vital Signs Vital Sign Reading Time Taken Comments Blood Pressure 142/74 03/21/2016 10:09 AM CDT Pulse 73 03/21/2016 10:09 AM CDT Temperature - - Respiratory Rate - - Oxygen Saturation - - Inhaled Oxygen Concentration - - Weight 70.8 kg (156 lb) 03/21/2016 10:09 AM CDT Height 166.4 cm (5' 5.5 ) 03/21/2016 10:09 AM CD T Body Mass Index 25.56 03/21/2016 10:09 AM CDT Plan of Treatment Health Maintenance Due Date Last Done Comments Colorectal Cancer Screening Colonoscopy (10 Years) 1950 Hepatitis C 01/04/1968 DTaP, Tdap and Td Vaccines ( 1 - Tdap) 1969 Mammogram Screening 1990 Zoster Vaccines (1 of 2) 01/04/2000 Dexa Scan (General) 2015 Pneumococcal Vaccine: 50+ Ye ars (1 of 1 - PCV) 2015 COVID-19 Vaccine ( - 2023-2 5 season) 2024 RSV Immunization or 60+ Years (1 - 1-dose 75+ series) 2025 Meningococcal B Vaccine Aged Out No l onger eligible based on patient's age to complete this topic Meningococcal Vaccine Aged Out No shazia natalia eligible based on patient's age to complete this topic RSV Immunizations Under 20 Months Aged Out No longer eligible based on patient's age to complete this topic Care Teams Timber Girdler Relationship Specialty Start Date End Date Dangelo Ford MD PCP - General 01/24/16
== END 2024-09-21 08:46 | disposition home or self-care (01) ==
PROVIDERS: PCP Emergency Medicine; Visit Provider Nurse Practitioner
DX: K21.9 Gastro-esophageal reflux disease without esophagitis (principal)
CPT/HCPCS: 74246

== ENCOUNTER 2024-10-19 09:19 | Outpatient (CLI) | payer OTHER, SELFPAY ==
--- OUTSIDE RECORDS SUMMARY | 2024-10-19 09:29 | XMS_ITS | Clinical Summary ---
Author Organization [facility] Address [address] [place] [id number] Care Team Providers Care Vp Human Resources Name Role Phone Dangelo Ford MD Primary [...] 1 - Tdap) 1969 Mammogram Screening 1990 Pneumococcal Vaccine: 50+ Ye ars (1 of 1 - PCV) 01/04/2000 Zoster Vaccines (1 of 2) 01/04/2000 Dexa Scan (General) 2015 COVID-19 Vaccine ( - 2023-2 5 [...] age to complete this topic Care Teams Vp Human Resources Relationship Specialty Start Date End Date Dangelo Ford MD PCP - General 01/24/16
[2024-10-19 10:57] LABS: Toxigenic C. Diff NEGATIVE (NEGATIVE)
== END 2024-10-19 09:20 | disposition home or self-care (01) ==
PROVIDERS: PCP Emergency Medicine; Visit Provider Nurse Practitioner
DX: K58.0 Irritable bowel syndrome with diarrhea (principal)
CPT/HCPCS: 82653; 83993; 87045; 87269; 87427; 87449; 87493

== ENCOUNTER 2025-02-08 01:35 | Day surgery (SDC) | payer OTHER, SELFPAY ==
[2025-01-25 11:37] VITALS: BMI 25.7
[2025-02-08 13:07] VITALS: BP 116/85; PULSE 82; RESP 16; TEMP 36.1; O2SAT 100
--- NOTE | 2025-02-08 13:15 | P.PNAN_ITS ---
Anes - Initial Pre Proc Eval Procedure: Operation Date: 02/08/25 14:00 Proposed Procedures p Diagnostic Colonoscopy - He Dumont MD Date/Time: 02/08/25 13:15 Surgeon: He Dumont MD Pre Op Diagnosis: Diarrhea, unspecified Patient Data Age: 75 Gender: F Height: 1.65 m Weight: 63.2 kg Last Vital Signs Temp 97 F L 02/08/25 13:07 Pulse 82 02/08/25 13:07 Resp 16 02/08/25 13:07 BP 116/85 02/08/25 13:07 Pulse Ox 100 02/08/25 13:07 O2 Del Method Room Air 02/08/25 13:07 Allergies Allergy/AdvReac Type Severity Reaction Status Date / Time oxycodone Allergy Intermediate Gastrointestinal Verified 02/08/25 13:04 Upset ibuprofen AdvReac Intermediate Nausea Verified 02/08/25 13:04 Home Medications ?Medication ?Instructions ?Recorded ?Confirmed ?Type cholecalciferol (vitamin D3) 50 50 mcg PO DAILY 02/08/25 History mcg (2,000 unit) capsule ibandronate 150 mg tablet 150 mg PO MONTHLY #3 tabs 02/08/25 Rx famotidine 40 mg tablet See Rx Instructions .Route 0 10/14/24 02/08/25 Rx .COMPLEX #90 tabs dexlansoprazole 60 mg See Rx Instructions .Route 0 12/06/24 02/08/25 Rx capsule,biphase delayed release .COMPLEX #30 caps diphenhydramine HCl 25 mg tablet 25 mg PO HS 01/25/25 02/08/25 History (Benadryl Allergy) Patient hx anesthesia problems: none Family hx anesthesia problems: none Results Review: All pre-operative results and documents have been reviewed as part of the pre- operative evaluation. [facility] Past Medical History Medical History Diarrhea Multiple rib fractures Age related osteoporosis Skin lesion of face Primary osteoarthritis, unspecified site Post-menopause Mixed hyperlipidemia Incomplete tear of right rotator cuff Hyperkalemia GERD without esophagitis Dental abscess Chronic bilateral low back pain without sciatica Acute pain of right shoulder Osteoporosis Chest pain Irritable bowel syndrome with diarrhea Overweight (BMI 25.0-29.9) Hx of adenomatous colonic polyps Epigastric pain GERD with esophagitis Vitamin D deficiency disease GERD (gastroesophageal reflux disease) Family History Family History Sibling Family history of cardiovascular disease Other Diabetes mellitus Family history of arthritis Social History Social History Smoking status: Never smoker Alcohol intake: current Alcohol use details: rarely Substance use: never Substance use type: does not use Do You Feel Safe in your Home?: Yes Lack of Transportation: No Lack of Food: Never True Current Housing: I Have Housing Concerned About Future Housing: No Difficulty Paying Gas/Electric Bills: No Difficulty Paying for Meds: No Currently Unemployed: No Education: Trade/Vocational Certificate Difficulty w/ Childcare or Family Care: No Living arrangements: with family Gender identity (if verbalized by the patient): Male Spiritual care concerns: No Anes - Eval Final PreProcedure Day of Procedure 02/08/25 13:15 Patient weight: normal Heart: regular rate and rhythm Lungs: clear to auscultation Airway: Mallampati scale class II Neurological: alert and oriented Last oral intake: >/= 8 hours ASA classification: III Emergent: no Anesthetic plan: proceed Anesthesia type and monitoring: general GIVS and standard monitoring Results Review: All pre-operative results and documents have been reviewed as part of the pre- operative evaluation. Informed Consent: The patient's anesthetic plan and its attendant risks and benefits were disc ussed with the patient/family/POA. Questions were solicited and answers provided to the satisfaction of the patient/family/POA.
[2025-02-08] MEDS: LACTATED RINGERS 1,000 ML 150 ML IV CONT (13:19)
--- NOTE | 2025-02-08 14:33 | P.HP_ITS ---
History of Present Illness History of Present Illness Consent: Risks, benefits, and alternatives have been discussed and questions answered. Patient agrees to proceed with procedure. Chief complaint: Diarrhea, unspecified Narrative: Chantal Clayton is a 75 year old female with diarrhea, last colonoscopy 2020 Review of Systems Review of Systems: All systems reviewed & are unremarkable except as noted in HPI and below PMFSH Past Medical History Medical History Diarrhea Multiple rib fractures Age related osteoporosis Skin lesion of face Primary osteoarthritis, unspecified site Post-menopause Mixed hyperlipidemia Incomplete tear of right rotator cuff Hyperkalemia GERD without esophagitis Dental abscess Chronic bilateral low back pain without sciatica Acute pain of right shoulder Osteoporosis Chest pain Irritable bowel syndrome with diarrhea Overweight (BMI 25.0-29.9) Hx of adenomatous colonic polyps Epigastric pain GERD with esophagitis Vitamin D deficiency disease GERD (gastroesophageal reflux disease) Family History Family History Sibling Family history of cardiovascular disease Other Diabetes mellitus Family history of arthritis Social History Social History Smoking status: Never smoker Alcohol intake: current Alcohol use details: rarely Substance use: never Substance use type: does not use Do You Feel Safe in your Home?: Yes Lack of Transportation: No Lack of Food: Never True Current Housing: I Have Housing Concerned About Future Housing: No Difficulty Paying Gas/Electric Bills: No Difficulty Paying for Meds: No Currently Unemployed: No Education: Trade/Vocational Certificate Difficulty w/ Childcare or Family Care: No Living arrangements: with family Gender identity (if verbalized by the patient): Male Spiritual care concerns: No Meds Home Medications and Allergies Home Medications ?Medication ?Instructions ?Recorded ?Confirmed ?Type cholecalciferol (vitamin D3) 50 50 mcg PO DAILY 02/08/25 History mcg (2,000 unit) capsule ibandronate 150 mg tablet 150 mg PO MONTHLY #3 tabs 02/08/25 Rx famotidine 40 mg tablet See Rx Instructions .Route 0 10/14/24 02/08/25 Rx .COMPLEX #90 tabs dexlansoprazole 60 mg See Rx Instructions .Route 0 12/06/24 02/08/25 Rx capsule,biphase delayed release .COMPLEX #30 caps diphenhydramine HCl 25 mg tablet 25 mg PO HS 01/25/25 02/08/25 History (Benadryl Allergy) Allergies Allergy/AdvReac Type Severity Reaction Status Date / Time oxycodone Allergy Intermediate Gastrointestinal Verified 02/08/25 13:04 Upset ibuprofen AdvReac Intermediate Nausea Verified 02/08/25 13:04 Vital Signs Vital Signs - 24 hr 02/08/25 13:07 Temperature 97 F L Pulse Rate 82 Respiratory Rate 16 Blood Pressure 116/85 Pulse Oximetry 100 Oxygen Delivery Room Air Exam Const: General: comfortable and no acute distress HENMT: Face/Nose/Sinus: Normal nares present Eyes: General: appearance normal, both eyes and all related structures Neck: Neck: no JVD Resp: Auscultation: clear to auscultation bilaterally Cardio: Rate: regular rate Rhythm: regular rhythm GI: Inspection: non-distended GI Palp: Yes Soft to palpation Skin: General skin exam: normal color Neuro: Speech: normal speech Extrem: General: normal to inspection Psych: Mental Status: mental status grossly normal Assessment and Plan Assessment and plan (1) Diarrhea: Qualifiers: Diarrhea type: unspecified type Qualified Code(s): R19.7 - Diarrhea, unspecified Code(s): R19.7 - Diarrhea, unspecified Status: Acute Assessment and Plan: colonoscopy with bx
--- NOTE | 2025-02-08 14:50 | S_PTH ---
PATIENT: Chantal Clayton LOC: [facility] Murillo#:[id number] AGE/SX: 75/F ROOM: RE02/08/[address]: He Dumont MD : 1950 BED: DIS: 02/08/2025 SPEC #: [id number] RECD: 02/09/25 07:47 STATUS: ALFRED REQ #: [id number] NAV: 02/08/25 14:[address]: He Dumont DEPT: [facility] Surgical RECD BY: Yadira Bella ENTERED: 02/09/25 07:47 SP TYPE: Surgical OTHR DR: Nadir Guatam MD Tissues: A - Colon Biopsy Procedures: Hematoxylin and Eosin Stain Gross and Microscopic Level 4
[2025-02-08 14:55] VITALS: BP 84/53; PULSE 89; RESP 21; O2SAT 96
[2025-02-08 15:05] VITALS: BP 88/57; PULSE 85; RESP 20; O2SAT 97
[2025-02-08 15:15] VITALS: BP 93/56; PULSE 79; RESP 23; O2SAT 98
== END 2025-02-08 15:30 | disposition home or self-care (01) ==
PROVIDERS: PCP Emergency Medicine; Referring Provider Nurse Practitioner; Visit Provider Internal Medicine Gastroenterology
PROC: 0DJD8ZZ Inspection of Lower Intestinal Tract, Via Natural or Artificial Opening Endoscopic (ICD-10-PCS; CPT 45378; principal; 2025-02-08 14:00)
DX: K64.8 Other hemorrhoids (principal); K58.0 Irritable bowel syndrome with diarrhea; K21.9 Gastro-esophageal reflux disease without esophagitis; E55.9 Vitamin D deficiency, unspecified; E78.2 Mixed hyperlipidemia; E87.5 Hyperkalemia; M81.0 Age-related osteoporosis without current pathological fracture; M19.90 Unspecified osteoarthritis, unspecified site; G89.29 Other chronic pain; M54.50 Low back pain, unspecified; Z79.83 Long term (current) use of bisphosphonates; Z86.0100 Personal history of colon polyps, unspecified; Z82.49 Family history of ischemic heart disease and other diseases of the circulatory system
CPT/HCPCS: 45380; 88305; J2003; J2704; J7120

== ENCOUNTER 2025-03-30 12:21 | Outpatient (CLI) | payer OTHER, SELFPAY ==
--- NOTE | ~2025-03-30 | CT_ITS ---
CT abdomen pelvis w con INDICATION:lower abdominal cramping . COMPARISON: None. TECHNIQUE: Axial images of the abdomen and pelvis were obtained following infusion of 100 mL Isovue 300. Dose optimization technique was utilized. FINDINGS: The lung bases are clear. The liver parenchyma is unremarkable. No intrahepatic mass or ductal dilatation is evident. The patient has had a cholecystectomy. The pancreas and spleen are normal in appearance. The adrenal glands are symmetric in size. The kidneys demonstrate symmetric uptake and excretion of contrast. No cystic mass is evident. There is no solid mass. There is no hydronephrosis. Evaluation of the stomach and bowel loops are limited due to lack of oral contrast. There is thickening of the distal ileum. The bladder and rectum are normal. No free intraperitoneal fluid or air is evident. There is no significant retroperitoneal lymphadenopathy. The aorta, visceral vessels and renal arteries demonstrate normal caliber and patency. The lower thoracic and lumbar vertebrae are in normal alignment. IMPRESSION: Thickening of the distal ileum suggestive of inflammatory disease. All CT scans at this facility are performed using low dose modulation techniques as appropriate to perform exam including the following: automated exposure control; use of iterative reconstruction technique; adjustment of the mA and/or kV according to patient size (this includes techniques or standardized protocols for targeted exams where dose is matched to indication/reason for exam). Reviewed, dictated and finalized at location S. IMPRESSION: Thickening of the distal ileum suggestive of inflammatory disease. All CT scans at this facility are performed using low dose modulation techniqu es as appropriate to perform exam including the following: automated exposure c ontrol; use of iterative reconstruction technique; adjustment of the mA and/or kV according to patient size (this includes techniques or standardized protocol s for targeted exams where dose is matched to indication/reason for exam).
[2025-03-30 12:42] LABS: Estimated Glomerular Filt Rate > 60
== END 2025-03-30 12:22 | disposition home or self-care (01) ==
LOC: MICIMG 12:22
PROVIDERS: PCP Emergency Medicine; Visit Provider Nurse Practitioner
DX: R10.31 Right lower quadrant pain (principal); R10.32 Left lower quadrant pain
CPT/HCPCS: 74177; Q9967

== ENCOUNTER 2025-05-02 05:31 | Outpatient (CLI) | payer OTHER, SELFPAY ==
--- NOTE | 2025-05-02 06:37 | SUR.OPER ---
Patient brought to GI Lab. Instructions for patient undergoing Capsule Endoscopy reviewed with patient. Consent form signed. Sensor array applied to patient's abdomen and connected to recorded. Patient swallowed capsule with 12ozs of water infused with Simethicone. Patient instructed they may have clear liquids at 0830 this AM and eat or drink at 1030 this AM. Patient instructed to return to GI Lab at 1500 this afternoon for removal of recording device and to call [phone] or to return to the hospital if any nausea and vomiting or abdominal pain is experienced. Pt states understands instructions
--- NOTE | 2025-05-02 13:37 | SUR.PHASEII ---
Patient returned to the GI Lab at 1335 for recorder box removal. Patient voiced no complaints. States they have understanding of instructions. Patient left ambulatory.
== END 2025-05-02 05:32 | disposition home or self-care (01) ==
PROVIDERS: PCP Emergency Medicine; Referring Provider Nurse Practitioner; Visit Provider Internal Medicine Gastroenterology
PROC: (CPT 91110; principal; 2025-05-02 07:00)
DX: K63.9 Disease of intestine, unspecified (principal); R93.3 Abnormal findings on diagnostic imaging of other parts of digestive tract; R19.5 Other fecal abnormalities; Z01.818 Encounter for other preprocedural examination
CPT/HCPCS: 91110